=== PATIENT | female | born 1995 | race Caucasian/White ===

== ENCOUNTER → 2017-11-23 | Outpatient (CLI) | payer SELFPAY | END | disposition home or self-care (01) | LOC: US 16:23 | DX: N85.8 Other specified noninflammatory disorders of uterus (principal) ==

== ENCOUNTER → 2017-11-27 | Outpatient (CLI) | payer SELFPAY ==
[2017-11-27 13:59] LABS: HEMATOCRIT 40.7 % (37.0-47.0); HEMOGLOBIN 13.2 g/dl (12.0-16.0); MEAN CELL VOLUME 90.6 fl (81.0-99.0); MEAN CORPUSCULAR HGB 29.4 pg (27.0-31.0); MEAN CORPUSCULAR HGB CONC 32.4 g/dl (33.0-37.0); RED BLOOD COUNT 4.49 10*6/uL (4.10-5.10); RED CELL DISTRI WIDTH 11.9 % (0-14.5); WHITE BLOOD COUNT 7.4 10*3/uL (4.8-10.8)
[2017-11-27 14:25] LABS: ALBUMIN 4.2 gm/dl (3.1-4.5); ALKALINE PHOSPHATASE 47 U/L (45-117); BUN 13 mg/dl (7-24); CHLORIDE 107 mmol/L (98-107); CHOLESTEROL 144 mg/dL (<200); CREATININE 0.83 mg/dL (0.55-1.02); POTASSIUM 4.3 mmol/L (3.5-5.1); SGOT/AST 10 IU/L (3-35); SGPT/ALT 15 U/L (12-78); SODIUM 142 mmol/L (136-145); TOTAL PROTEIN 8.1 gm/dL (6.4-8.2); TRIGLYCERIDES 79 mg/dl (<150); VLDL CHOLESTEROL 16 mg/dL (6-40)
[2017-11-27 14:33] LABS: HDL CHOLESTEROL 51 mg/dl (40-60); LDL CHOLESTEROL 77 mg/dL (9-159)
== END | disposition home or self-care (01) ==
LOC: LAB 13:24
PROVIDERS: Family Medicine
DX: Z13.220 Encounter for screening for lipoid disorders (principal); E55.9 Vitamin D deficiency, unspecified; R10.9 Unspecified abdominal pain; R10.2 Pelvic and perineal pain; R79.89 Other specified abnormal findings of blood chemistry

== ENCOUNTER → 2017-12-06 | Outpatient (CLI) | payer SELFPAY | END | disposition home or self-care (01) | LOC: CT 11-30 10:00 | DX: R10.11 Right upper quadrant pain (principal) ==